=== PATIENT | female | born 1960 | race Caucasian/White ===

== ENCOUNTER 2019-09-03 19:10 | Inpatient (IN) | payer OTHER ==
[2019-09-03] MEDS ORDERED: ASPIRIN 81 MG CHEWABLE TABLET ONE (19:53)
[2019-09-03] MEDS ORDERED: NA CHLORIDE 0.9% 1,000 ML ONE (19:54)
[2019-09-03] MEDS ORDERED: NITROGLYCERIN 0.4 MG/TAB SL ONE (19:54)
--- NOTE | 2019-09-03 20:17 | RAD REPORT ---
EXAM DESCRIPTION: RAD - Chest Single View - 09/03/2019 8:09 pm CLINICAL HISTORY: CHEST PAIN Chest pain. COMPARISON: CHEST SINGLE VIEW dated 07/12/2014 FINDINGS: Portable technique limits examination quality. Mild interstitial pulmonary edema versus interstitial pneumonia suspected. The heart is upper limit n ormal in size. No displaced fractures.
[2019-09-03 20:25] LABS: Absolute Lymphocytes (CBC) 2.3 K/uL (0.7-4.9); Basophils % 0.4 % (0-1.3); Hematocrit 42.3 % (36.0-45.0); Lymphocytes % 16.5 % (15.3-44.8); MPV 8.4 fL (7.6-11.3); RBC Red Blood Cell Count 4.81 M/uL (3.86-4.86)
[2019-09-03 20:26] LABS: Protime INR 0.98
[2019-09-03 20:48] LABS: ALT/SGPT 37 U/L (12-78); AST/SGOT 21 U/L (15-37); Albumin 3.3 g/dL (3.4-5.0); Alkaline Phosphatase 128 U/L (45-117); BUN Blood Urea Nitrogen 13 mg/dL (7-18); Bicarbonate 23 mmol/L (21-32); Bilirubin Direct < 0.1 mg/dL (0-0.2); Bilirubin Total 0.4 mg/dL (0.2-1.0); Glucose Level 214 mg/dL (74-106); Magnesium 1.9 mg/dL (1.8-2.4); NT PRO-BNP 82 pg/mL (<125); Potassium 4.2 mmol/L (3.5-5.1); Protein, Total 6.9 g/dL (6.4-8.2); Sodium Level 138 mmol/L (136-145)
[2019-09-03 20:50] LABS: Troponin (Emerg Dept Use Only) 0.58 ng/mL (0.0-0.045)
--- NOTE | 2019-09-03 22:43 | ER ---
Nurse's Notes [facility] Name: Viridiana Mario Age: 59 yrs Sex: Female : 1960 Arrival Date: 09/03/2019 Time: 19:11 Bed 20 Private MD: Diagnosis: Non-ST elevation (NSTEMI) myocardial infarction Presentation: 09/02 19:17 Chief complaint: Patient states: Chest pains that began 1 hour ago. Coronavirus screen: ss Proceed with normal triage. Patient denies a cough. Patient denies shortness of breath or difficulty breathing. Patient denies measured and/or subjective temperature greater than 100.4F prior to today's visit. Patient denies travel on a cruise ship or to a country the [facility] currently lists as an affected area. Patient denies contact with known and/or suspected case of COVID-19. Ebola Screen: Patient denies exposure to infectious person. Patient denies travel to an Ebola-affected area in the 21 days before illness onset. Initial Sepsis Screen: Does the patient meet any 2 criteria? No. Patient's initial sepsis screen is negative. Does the patient have a suspected source of infection? No. Patient's initial sepsis screen is negative. Risk Assessment: Do you want to hurt yourself or someone else? Patient reports no desire to harm self or others. Onset of symptoms was September 03, 2019. 19:17 Method Of Arrival: Ambulatory 19:17 Acuity: GILBERTO 2 ss Historical: - Allergies: 19:20 PENICILLINS; ss 19:20 Wellbutrin; ss - PSHx: 19:20 circumflex cardiac stent; ss - Immunization history:: Adult Immunizations up to date. - Social history:: Smoking status: Patient reports the use of cigarette tobacco products, smokes one pack cigarettes per day. Screenin:05 Abuse screen: Denies threats or abuse. Nutritional screening: No deficits noted. ll1 Tuberculosis screening: No symptoms or risk factors identified. Fall Risk IV access (20 points). Total Archer Fall Scale indicates No Risk (0-24 pts). Assessment: 20:00 General: Appears in no apparent distress. Behavior is calm, cooperative, appropriate ll1 for age. Pain: Complains of pain in mid chest Pain radiates to both arms Pain currently is 2 out of 10 on a pain scale. Quality of pain is described as Pain began today. Neuro: No deficits noted. Cardiovascular: Reports chest pain, Heart tones S1 S2 Capillary refill < 3 seconds Clubbing of nail beds is absent JVD is absent Patient's skin is warm and dry. Respiratory: No deficits noted. Airway is patent Trachea midline Respiratory effort is even, unlabored, Respiratory pattern is regular, symmetrical, Breath sounds are clear bilaterally. Denies cough, shortness of breath. GI: Abdomen is flat, Bowel sounds present X 4 quads. Abd is soft and non tender X 4 quads. Reports one episode of N/V earlier today, none now. 21:00 Reassessment: Patient appears in no apparent distress at this time. No changes from ll1 previously documented assessment. Patient and/or family updated on plan of care and expected duration. Pain level reassessed. Patient is alert, oriented x 3, equal unlabored respirations, skin warm/dry/pink. 22:00 Reassessment: Patient appears in no apparent distress at this time. No changes from ll1 previously documented assessment. Patient and/or family updated on plan of care and expected duration. Pain level reassessed. Patient is alert, oriented x 3, equal unlabored respirations, skin warm/dry/pink. 23:00 Reassessment: Patient appears in no apparent distress at this time. No changes from ll1 previously documented assessment. Patient and/or family updated on plan of care and expected duration. Pain level reassessed. Patient is alert, oriented x 3, equal unlabored respirations, skin warm/dry/pink. 23:41 Reassessment: Patient appears in no apparent distress at this time. No changes from ll1 previously documented assessment. Patient and/or family updated on plan of care and expected duration. Pain level reassessed. Patient is alert, oriented x 3, equal unlabored respirations, skin warm/dry/pink. Gait steady from restroom. Vital Signs: 19:17 BP 166 / 87; Pulse 81; Resp 16; Temp 96.9(TE); Pulse Ox 100% on R/A; Weight 77.11 kg; ss Height 5 ft. 8 in. (172.72 cm); Pain 8/10; 19:22 Temp 98.4(O); ss 20:05 BP 150 / 91 LA; ll1 20:05 BP 150 / 85 RA; ll1 20:51 BP 139 / 78; Pulse 78; Resp 17; Pulse Ox 98% on R/A; Pain 1/10; ll1 21:15 BP 149 / 78; Pulse 75; Resp 16; Pulse Ox 99% ; Pain 0/10; ll1 23:13 Weight 79.9 kg (M); ll1 23:43 BP 135 / 76; Pulse 80; Resp 17; Temp 97.8; Pulse Ox 99% ; Pain 0/10; ll1 23:13 Body Mass Index 26.78 (79.90 kg, 172.72 cm) ll1 ED Course: 19:11 Patient arrived in ED. cl3 19:19 Triage completed. ss 19:20 Arm band placed on right wrist. ss 19:32 Chuy Oliver PA is PHCP. cp 19:32 Aarno Swartz MD is Attending Physician. cp 19:42 Hermes Aguero RN is Primary Nurse. ll1 20:05 Inserted saline lock: 22 gauge in right antecubital area, using aseptic technique. ll1 Blood collected. Patient maintains SpO2 saturation greater than 95% on room air. 20:06 Patient has correct armband on for positive identification. Placed in gown. Bed in low ll1 position. Call light in reach. Side rails up X2. crosstie inspector on. Pulse ox on. NIBP on. 22:42 Nikita Bueno is Hospitalizing Provider. cp 23:34 Angio Aorta For Dissection In Process Unspecified. EDMS 23:41 No provider procedures requiring assistance completed. Patient admitted, IV remains in ll1 place. Administered Medications: 19:55 Drug: Aspirin Chewable Tablet 243 mg Route: PO; ll1 20:50 Follow up: Response: No adverse reaction; Pain is decreased; RASS: Alert and Calm (0) ll1 19:56 Drug: Nitroglycerin 0.4 mg Route: Sublingual; ll1 20:50 Follow up: Response: No adverse reaction; Pain is decreased; RASS: Alert and Calm (0) ll1 20:03 Drug: NS 0.9% 500 ml Route: IV; Rate: bolus; Site: right antecubital; ll1 20:50 Follow up: Response: No adverse reaction; IV Status: Completed infusion; IV Intake: ll1 500ml 20:49 Drug: NS 0.9% 500 ml Route: IV; Rate: 100 ml/hr; Site: right antecubital; ll1 23:31 Drug: Lovenox 1 mg/kg Route: Sub-Q; Site: right lower abdomen; ll1 23:47 Follow up: Response: No adverse reaction; RASS: Alert and Calm (0) ll1 Intake: 20:50 IV: 500ml; Total: 500ml. ll1 Outcome: 22:42 Decision to Hospitalize by Provider. georgette 09/03 00:00 Admitted to ER Hold. Please see [facility] for further documentation. lp1 Condition: stable Instructed on the need for admit. 06:42 Patient left the ED. dm5 Signatures: Dispatcher [employer] EDMS Nicole Horton RN RN dm5 Tiffany Everett RN RN ss Shelia Plummer RN RN lp1 Chuy Oliver PA PA cp Lewis, Charde cl3 Hermes Aguero RN RN ll1
--- NOTE | 2019-09-03 22:43 | EDPHYS ---
Physician Documentation [facility] Name: Viridiana Mario Age: 59 yrs Sex: Female : 1960 Arrival Date: 09/03/2019 Time: 19:11 Bed 20 Private MD: ED Physician Aaron Swartz HPI: 09/02 19:40 This 59 yrs old Female presents to ER via Ambulatory with complaints of Chest cp Pain. 19:40 The patient or guardian reports chest pain that is located primarily in the substernal cp area. 19:40 Onset: 1 hour(s) ago. cp 19:40 Associated signs and symptoms: Pertinent positives: nausea, vomiting, back pain and cp bilateral arm pain, Pertinent negatives: abdominal pain, cough, diaphoresis, headache, lower extremity pain, lower extremity swelling, syncope. The chest pain is described as aching. Duration: The patient or guardian reports a single episode, that is still ongoing, but improving, pain level 8 at its worse, now a 2. Historical: - Allergies: 19:20 PENICILLINS; ss 19:20 Wellbutrin; ss - PSHx: 19:20 circumflex cardiac stent; ss - Immunization history:: Adult Immunizations up to date. - Social history:: Smoking status: Patient reports the use of cigarette tobacco products, smokes one pack cigarettes per day. ROS: 19:43 Eyes: Negative for injury, pain, redness, and discharge. cp 19:43 Constitutional: Negative for body aches, chills, fever, poor PO intake. 19:43 Cardiovascular: Positive for chest pain, of the substernal, Negative for edema, palpitations. 19:43 Abdomen/GI: Positive for nausea, vomiting, Negative for abdominal pain, diarrhea, constipation. 19:45 Respiratory: Negative for cough, shortness of breath, wheezing. cp 19:45 Back: Positive for pain at rest. 19:45 Skin: Negative for rash. 19:45 Neuro: Negative for altered mental status, headache, numbness, syncope, weakness. 19:45 All other systems are negative. Exam: 19:50 Constitutional: The patient appears in no acute distress, alert, awake, cp non-diaphoretic, non-toxic, well developed, well nourished. 19:50 Head/Face: Normocephalic, atraumatic. cp 19:50 Eyes: Periorbital structures: appear normal, Conjunctiva: normal, no exudate, no injection, Sclera: no appreciated abnormality, Lids and lashes: appear normal, bilaterally. 19:50 ENT: External ear(s): are unremarkable, Nose: is normal, Mouth: Lips: moist, Oral mucosa: moist, Posterior pharynx: Airway: no evidence of obstruction, patent. 19:50 Neck: ROM/movement: is normal, is supple, without pain, no range of motions limitations, no nuchal rigidity. 19:50 Chest/axilla: Inspection: normal, Palpation: is normal, no crepitus, no tenderness. 19:50 Cardiovascular: Rate: normal, Rhythm: regular, Pulses: Pulses are 2+ in right radial artery and left radial artery. Edema: is not appreciated, JVD: is not appreciated. 19:50 Respiratory: the patient does not display signs of respiratory distress, Respirations: normal, no use of accessory muscles, no retractions, labored breathing, is not present, Breath sounds: are clear throughout, no decreased breath sounds, no stridor, no wheezing. 19:50 Abdomen/GI: Inspection: abdomen appears normal, Bowel sounds: active, all quadrants, Palpation: abdomen is soft and non-tender, in all quadrants. 19:50 Back: pain, that is mild, of the mid back, ROM is normal, vertebral tenderness, is not appreciated. 19:50 Musculoskeletal/extremity: Exam is negative for decreased range of motion, deformity, injury. 19:50 Skin: no rash present. 19:50 Neuro: Orientation: to person, place \T\ time. Mentation: is normal, Motor: moves all fours, strength is normal, Sensation: is normal. 20:00 ECG was reviewed by the Attending Physician. cp Vital Signs: 19:17 BP 166 / 87; Pulse 81; Resp 16; Temp 96.9(TE); Pulse Ox 100% on R/A; Weight 77.11 kg; ss Height 5 ft. 8 in. (172.72 cm); Pain 8/10; 19:22 Temp 98.4(O); ss 20:05 BP 150 / 91 LA; ll1 20:05 BP 150 / 85 RA; ll1 20:51 BP 139 / 78; Pulse 78; Resp 17; Pulse Ox 98% on R/A; Pain 1/10; ll1 21:15 BP 149 / 78; Pulse 75; Resp 16; Pulse Ox 99% ; Pain 0/10; ll1 23:13 Weight 79.9 kg (M); ll1 23:43 BP 135 / 76; Pulse 80; Resp 17; Temp 97.8; Pulse Ox 99% ; Pain 0/10; ll1 23:13 Body Mass Index 26.78 (79.90 kg, 172.72 cm) ll1 MDM: 19:40 Patient medically screened. cp 20:30 Differential diagnosis: abnormal EKG, acute myocardial infarction, acute pericarditis, cp pulmonary embolus, stable angina, thoracic aortic disection, unstable angina. 22:40 Data reviewed: vital signs, nurses notes, lab test result(s), EKG, radiologic studies, cp CT scan, plain films. Test interpretation: by ED physician or midlevel provider: ECG. Physician consultation: Nikita Bueno was called at 22:40, was contacted at 22:40, regarding admission, to the telemetry unit. patient's condition, would like medications started, Lovenox 1mg/kg. 22:40 The patient was given aspirin in the Emergency Department. cp 22:40 Response to treatment: the patient's symptoms have markedly improved after treatment, cp chest pain resolved. 09/02 19:38 Order name: Basic Metabolic Panel cp 09/02 19:38 Order name: CBC with Diff cp 09/02 19:38 Order name: LFT's cp 09/02 19:38 Order name: Magnesium cp 09/02 19:38 Order name: NT PRO-BNP cp 09/02 19:38 Order name: PT-INR cp 09/02 19:38 Order name: Troponin (emerg Dept Use Only) cp 09/02 20:26 Order name: CBC with Automated Diff; Complete Time: 20:28 EDMS 09/02 20:28 Interpretation: Normal except: WBC 13.9; NEUT A 10.2. cp 09/02 20:30 Order name: Protime (+INR); Complete Time: 20:44 EDMS 09/02 20:50 Order name: Basic Metabolic Panel; Complete Time: 21:06 EDMS 09/02 21:06 Interpretation: Normal except: GLUC 214; GFR 78. cp 09/02 20:50 Order name: Liver (Hepatic) Function; Complete Time: 21:06 EDMS 09/02 21:07 Interpretation: Normal except: ALK 128; ALB 3.3; GLOB 3.6; A/G 0.9. 09/02 20:50 Order name: Troponin (Emerg Dept Use Only); Complete Time: 21:06 [facility] 09/02 21:07 Interpretation: Abnormal: TROPED 0.58. 09/02 20:50 Order name: NT PRO-BNP; Complete Time: 21:06 [facility] 09/02 20:50 Order name: Magnesium; Complete Time: 21:06 [facility] 09/02 19:20 Order name: EKG; Complete Time: 21:22 09/02 19:20 Order name: EKG - Nurse/Tech; Complete Time: 19:20 ss 09/02 19:38 Order name: XRAY Chest (1 view) 09/02 19:38 Order name: Cardiac monitoring; Complete Time: 19:42 09/02 19:38 Order name: IV Saline Lock; Complete Time: 19:42 09/02 19:38 Order name: Labs collected and sent; Complete Time: 19:42 09/02 19:38 Order name: O2 Per Protocol; Complete Time: 19:42 09/02 19:38 Order name: O2 Sat Monitoring; Complete Time: 19:42 09/02 20:19 Order name: RAD; Complete Time: 20:25 [facility] 09/02 20:25 Interpretation: Report reviewed. 09/02 20:45 Order name: CT Aorta for Dissection 09/02 23:34 Order name: Angio Aorta For Dissection [facility] 09/02 19:39 Order name: Blood Pressure Recheck: bilateral upper extremity; Complete Time: 20:05 EC:00 Rate is 73 beats/min. Rhythm is regular. AR interval is normal. QRS interval is normal. QT interval is normal. T waves are Inverted in lead aVR. Interpreted by me. Reviewed by me. Administered Medications: 19:55 Drug: Aspirin Chewable Tablet 243 mg Route: PO; ll1 20:50 Follow up: Response: No adverse reaction; Pain is decreased; RASS: Alert and Calm (0) ll1 19:56 Drug: Nitroglycerin 0.4 mg Route: Sublingual; ll1 20:50 Follow up: Response: No adverse reaction; Pain is decreased; RASS: Alert and Calm (0) ll1 20:03 Drug: NS 0.9% 500 ml Route: IV; Rate: bolus; Site: right antecubital; ll1 20:50 Follow up: Response: No adverse reaction; IV Status: Completed infusion; IV Intake: ll1 500ml 20:49 Drug: NS 0.9% 500 ml Route: IV; Rate: 100 ml/hr; Site: right antecubital; ll1 23:31 Drug: Lovenox 1 mg/kg Route: Sub-Q; Site: right lower abdomen; ll1 23:47 Follow up: Response: No adverse reaction; RASS: Alert and Calm (0) ll1 Disposition: 09/03 06:48 Co-signature as Attending Physician, Aaron Swartz MD. 7 Disposition: 09/03/19 22:42 Hospitalization ordered by Nikita Bueno for Inpatient Admission. Preliminary diagnosis is Non-ST elevation (NSTEMI) myocardial infarction. - Bed requested for Telemetry/MedSurg (Inpatient). - Status is Inpatient Admission. dm5 - Condition is Stable. - Problem is new. - Symptoms have improved. Signatures: Dispatcher [employer] EDMS Nicole Horton RN RN [facility] Tiffany Everett RN RN ss Page, Corey, PA PA cp Yuko Garcia RN RN Hermes Aguero RN RN [facility] Aaron Swartz MD MD 7 Corrections: (The following items were deleted from the chart) 09/02 20:28 20:28 Normal except: WBC 13.9. cp cp 23:20 22:42 Hospitalization Ordered by Nikita Bueno for Inpatient Admission. Preliminary cg diagnosis is Non-ST elevation (NSTEMI) myocardial infarction. Bed requested for Telemetry/MedSurg (Inpatient). Status is Inpatient Admission. Condition is Stable. Problem is new. Symptoms have improved. cp 09/03 05:24 09/02 23:20 09/03/2019 22:42 Hospitalization Ordered by Nikita Bueno for Inpatient cg Admission. Preliminary diagnosis is Non-ST elevation (NSTEMI) myocardial infarction. Bed requested for [facility] ER HOLD. Status is Inpatient Admission. Condition is Stable. Problem is new. Symptoms have improved. cg 09/03 06:42 05:24 09/03/2019 22:42 Hospitalization Ordered by Nikita Bueno for Inpatient dm5 Admission. Preliminary diagnosis is Non-ST elevation (NSTEMI) myocardial infarction. Bed requested for Telemetry/MedSurg (Inpatient). Status is Inpatient Admission. Condition is Stable. Problem is new. Symptoms have improved. cg
[2019-09-03] MEDS ORDERED: ENOXAPARIN 80 MG/0.8 ML SQ ONE (23:25)
--- NOTE | 2019-09-04 00:13 | P.HP ---
Certification for Inpatient Patient admitted to: Observation With expected LOS: <2 Midnights Practitioner: I am a practitioner with admitting privileges, knowledge of patient current condition, hospital course, and medical plan of care. Services: Services provided to patient in accordance with Admission requirements found in Title 42 Section 412.3 of the Code of Federal Regulations Patient History Date of Service: 09/04/19 Reason for admission: Chest pain History of Present Illness: 59-year-old woman with a history of coronary artery disease status post stent about 5 years ago present to the ED with a complaint of a left arm pain which progressed to back pain and chest pain, maximum intensity 8/10, no relieving or aggravating factors, no associated diaphoresis. Patient EKG in the ED demonstrated normal sinus rhythm, no significant ischemic changes. Chest x-ray unremarkable. Initial troponin is elevated to 0.58. Given patient's history of coronary artery disease with stent, she is admitted for further management of NSTEMI. Allergies Penicillins Allergy (Intermediate, Verified 07/12/14 05:33) Hives/Rash bupropion HCl [From Wellbutrin] Adverse Reaction (Intermediate, Verified 07/12/14 05:33) Shortness of breath welbutrin Allergy (Uncoded 07/12/14 05:33) Unknown Home Medications: Aspirin [Aspirin EC] 81 mg PO DAILY 07/12/14 Atorvastatin Calcium [Lipitor] 80 mg PO DAILY 07/12/14 Colesevelam [Welchol*] 625 mg PO TID 07/12/14 Insulin Aspart [Novolog] 100 unit SQ PRN PRN 07/12/14 Insulin Glargine Human [Lantus] 30 unit SQ DAILY 07/12/14 Losartan Potassium [Cozaar*] 50 mg PO DAILY 07/12/14 Prasugrel Hydrochloride [Effient] 10 mg PO DAILY 07/12/14 Tiotropium [Spiriva Handihaler*] 18 mcg IH DAILY #1 cap.w.dev 07/12/14 levoFLOXacin [Levaquin*] 500 mg PO DAILY #7 tab 07/12/14 - Past Medical/Surgical History Diabetic: Yes -: IDDM -: HTN -: hyperlipidemia -: heart disease -: stent 2011 - Family History Father -: Heart disease, Diabetes - Social History Alcohol use: No CD- Drugs: No Caffeine use: Yes Review of Systems Other: Except as documented, all other systems reviewed and negative. Physical Examination - Studies Laboratory Data (last 24 hrs) 09/03/19 20:00: PT 11.6, INR 0.98 09/03/19 20:00: WBC 13.9 H, Hgb 13.9, Hct 42.3, Plt Count 350 09/03/19 20:00: Sodium 138, Potassium 4.2, BUN 13, Creatinine 0.76, Glucose 214 H, Magnesium 1.9, Total Bilirubin 0.4, AST 21, ALT 37, Alkaline Phosphatase 128 H 09/03/19 19:38: PT Cancelled, INR Cancelled 09/03/19 19:38: WBC Cancelled, Hgb Cancelled, Hct Cancelled, Plt Count Cancelled 09/03/19 19:38: Sodium Cancelled, Potassium Cancelled, BUN Cancelled, Creatinine Cancelled, Glucose Cancelled, Magnesium Cancelled, Total Bilirubin Cancelled, AST Cancelled, ALT Cancelled, Alkaline Phosphatase Cancelled Assessment and Plan - Problems (Diagnosis) (1) NSTEMI (non-ST elevated myocardial infarction) Current Visit: Yes Status: Acute (2) Diabetes mellitus Onset Date: 07/12/14 Current Visit: No Status: Acute (3) Tobacco abuse Onset Date: 07/12/14 Current Visit: No Status: Acute - Plan Admit to the medical floor. Patient given a shot of full-dose Lovenox. Start Aspirin, plavix. Metoprolol b.i.d. NTG p.r.n. Cardiology consult Continue to trend troponin. Check lipid profile Blood glucose management with Lantus insulin and insulin sliding scale. - Advance Directives Does patient have a Living Will: No Does patient have a Durable POA for Healthcare: No
[2019-09-04] MEDS ORDERED: MORPHINE 4 MG/ML SYR IV PRN (04:24)
[2019-09-04] MEDS ORDERED: NITROGLYCERIN 0.4 MG/TAB SL PRN (04:24)
[2019-09-04 05:24] VITALS: BMI 26.6
[2019-09-04 07:05] LABS: Troponin I 3.82 ng/mL (0.0-0.045)
[2019-09-04] MEDS: INSULIN -REGULAR HUMAN 50 UNIT/0.5 ML ML SQ SCH ×4 (07:30→21:00)
[2019-09-04] MEDS: ASPIRIN EC 81 MG TAB PO SCH ×2 (09:00→15:10)
[2019-09-04] MEDS: CLOPIDOGREL 75 MG TABLET PO SCH ×2 (09:00→15:11)
[2019-09-04] MEDS: METOPROLOL TAR 50 MG TAB PO SCH ×3 (09:00→23:03)
--- NOTE | 2019-09-04 09:58 | P.PN ---
Date of Service: 09/04/19 Patient currently has no chest pain. She is currently asymptomatic. Troponin trended up to 3.8. Cardiology-Dr. Matos informed. Patient is planned for cardiac catheterization this afternoon. Keep NPO. NTG p.r.n..
[2019-09-04] MEDS ORDERED: ATROPINE SULF 1 MG/10 ML SYR IV ONE (15:10)
[2019-09-04] MEDS ORDERED: HEPARIN 5000 UNIT/ML 1 ML VIAL ONE (15:10)
[2019-09-04] MEDS ORDERED: MIDAZOLAM HCL 2 MG/2 ML INJ ONE (15:11)
[2019-09-04] MEDS ORDERED: HEPA 1000U/500MLS 2,000 UNIT/1,000 ML BAG IV ONE (15:11)
[2019-09-04] MEDS ORDERED: FENTANYL CITR 100 MCG/2 ML ONE (15:12)
[2019-09-04] MEDS ORDERED: NITROGLYCERIN 100 MCG/ML SYR (for cath lab use only) IV ONE (15:12)
[2019-09-04] MEDS ORDERED: NICARDIPINE HCL 25 MG/10 ML IV ONE (15:12)
[2019-09-04] MEDS ORDERED: LIDOCAINE 1% 20 ML MDV ONE (15:17)
[2019-09-04] MEDS ORDERED: NA CHLORIDE 0.9% 500 ML ONE (15:56)
[2019-09-04] MEDS ORDERED: TICAGRELOR 90 MG TABLET PO ONE (16:38)
--- NOTE | 2019-09-04 18:29 | RAD REPORT ---
EXAM DESCRIPTION: CT Angio Aorta For Dissection CLINICAL HISTORY: 59 years Female chest pain TECHNIQUE: Contiguous axial images obtained through the chest were obtained from the thoracic inlet to the level of the upper abdomen during the arterial phase of intravenous contrast administration. C oronal and sagittal reformatted images provided. This CT exam was performed according to our departmental dose-optimization program, which includes on e or more of the following dose reduction techniques: automated exposure control, adjustment of the m A and/or kV according to patient size, and/or use of iterative reconstruction technique. COMPARISON: No prior exams provided for comparison. FINDINGS: Top normal cardiac size without pericardial effusion. Atherosclerosis without thoracic aor tic aneurysm or dissection. Soft and calcific plaque throughout the abdominal aorta without aneurysm or dissection. The major branches of the aorta are patent. However, there is focal soft plaque at the origin of the left common iliac artery resulting in approx imately 60% stenosis. The iliac arteries are otherwise patent. No mediastinal or retroperitoneal hemo rrhage. There is no pulmonary embolus. The heart is normal in size without pericardial effusion. Mild biapical emphysema. Minimal atelectasis at the lung bases. The lungs are otherwise clear. Scatte red nonocclusive secretions in the trachea. No lymphadenopathy in the chest. Calcified bilateral breast nodules, left greater than right likely reflecting fibrocystic disease. Top normal hepatic size without focal lesion. The biliary tree, gallbladder, pancreas, spleen, right adrenal gland, bilateral kidneys, uterus, ovar ies, and urinary bladder are normal. There are two left adrenal nodules, measuring 2.4 and 2.1 cm. This cannot be characterized as benign on this contrast study. There is no bowel inflammation, obstruction, free intraperitoneal air, or ascites. The appendix is no rmal. Mild chronic degenerative changes in the spine. IMPRESSION: Atherosclerosis without aortic aneurysm or dissection. The major branches of the aorta are patent. Approximately 60% focal stenosis at the origin of the left common iliac artery. No pulmonary embolus. Mild biapical emphysema. Two indeterminate left adrenal nodules. If prior exams not available for comparison, consider follow- up with CT washout study or MRI. Electronically signed by: Ashley Peralta MD 09/03/2019 10:01 PM CDT Due to temporary technical issues with the PACS/Fluency reporting system, reports are being signed by the in house radiologist without review as a courtesy to ensure prompt reporting. The interpreting r adiologist is fully responsible for the content of the report.
[2019-09-05] MEDS ORDERED: ZOLPIDEM TARTRATE 5 MG TABLET PO PRN (01:00)
[2019-09-05 01:49] VITALS: O2SAT 95
[2019-09-05 06:57] LABS: Absolute Lymphocytes (CBC) 2.5 K/uL (0.7-4.9); Basophils % 0.7 % (0-1.3); Hematocrit 43.8 % (36.0-45.0); Lymphocytes % 21.1 % (15.3-44.8); MPV 8.4 fL (7.6-11.3); RBC Red Blood Cell Count 4.98 M/uL (3.86-4.86)
[2019-09-05 07:08] LABS: BUN Blood Urea Nitrogen 9 mg/dL (7-18); Bicarbonate 27 mmol/L (21-32); Glucose Level 124 mg/dL (74-106); Potassium 4.3 mmol/L (3.5-5.1); Sodium Level 140 mmol/L (136-145)
[2019-09-05] MEDS ORDERED: TICAGRELOR 90 MG TABLET PO SCH (09:00)
[2019-09-05] MEDS: ASPIRIN EC 81 MG TAB PO SCH (09:36)
[2019-09-05] MEDS: METOPROLOL TAR 50 MG TAB PO SCH (09:36)
[2019-09-05] MEDS: INSULIN -REGULAR HUMAN 50 UNIT/0.5 ML ML SQ SCH ×2 (09:43→11:30)
--- NOTE | 2019-09-05 11:03 | P.DS ---
Admission Date: 09/04/19 Discharge Date: 09/05/19 Disposition: ROUTINE DISCHARGE Discharge Condition: GOOD Reason for Admission: Chest pain Consultations: Cardiology-Dr. Matos Procedures: Heart catheterization: Significant CAD noted. Stent placed. Medical problem list: Chest pain secondary to NSTEMI status post heart catheterization requiring stent placement Hypertension Diabetes mellitus type 2 insulin dependent Hyperlipidemia Brief History of Present Illness: 59-year-old female with history of CAD with prior stent. Patient reported chest pain. Elevated troponin noted. NSTEMI identified. Patient admitted for further evaluation and treatment. Hospital Course: Patient presented with chest pain secondary to NSTEMI. Patient seen evaluated by Cardiology. Heart catheterization performed. Patient had severe disease requiring stent placement. The patient tolerated procedure well. Case reviewed in detail with cardiology. Cardiology recommends at discharge to continue with aspirin 81 mg daily, Brilinta 90 mg 1 pill twice daily, Lipitor 80 mg daily, metoprolol 25 mg 1 pill twice daily, and losartan 25 mg daily. Recommend follow up with cardiology in 1-2 weeks to follow up this hospitalization. Patient with hypertension. Patient previously on losartan 100 mg daily. Patient was started on metoprolol due to her CAD. Blood pressure stable. At discharge she will continue with metoprolol 25 mg 1 pill twice daily and losartan 25 mg daily. May need to hold losartan if blood pressure systolic less than 120. Recommend to monitor her blood pressure daily. Further adjustment can be done by her PCP or cardiology. Patient with diabetes mellitus type 2 insulin dependent. At discharge she will continue with her regimen of Lantus 22 units subcu daily. Further adjustment can be done by her PCP. Patient with hyperlipidemia. At discharge she will continue with 80 mg daily. Recommend to recheck lab-fasting lipid panel in 4 weeks to monitor progress. Vital Signs/Physical Exam: Temp Pulse Resp BP Pulse Ox 98.1 F 78 16 120/61 95 09/05/19 08:00 09/05/19 08:00 09/05/19 08:00 09/05/19 08:00 09/05/19 08:00 General: Alert, In no apparent distress, Oriented x3, Cooperative HEENT: Atraumatic Neck: Supple Respiratory: Clear to auscultation bilaterally, Normal air movement Cardiovascular: Normal pulses, Regular rate/rhythm Gastrointestinal: Normal bowel sounds, Soft and benign, Non-distended Neurological: Normal speech, Normal strength at 5/5 x4 extr, Normal tone, Normal affect Laboratory Data at Discharge: WBC 11.8 K/uL (4.3-10.9) H D 09/05/19 06:16 Hgb 14.7 g/dL (12.0-15.0) 09/05/19 06:16 Hct 43.8 % (36.0-45.0) 09/05/19 06:16 Plt Count 332 K/uL (152-406) 09/05/19 06:16 PT 11.6 SECONDS (9.5-12.5) 09/03/19 20:00 INR 0.98 09/03/19 20:00 Sodium 140 mmol/L (136-145) 09/05/19 06:16 Potassium 4.3 mmol/L (3.5-5.1) 09/05/19 06:16 BUN 9 mg/dL (7-18) 09/05/19 06:16 Creatinine 0.58 mg/dL (0.55-1.3) 09/05/19 06:16 Glucose 124 mg/dL (74-106) H 09/05/19 06:16 Magnesium 1.9 mg/dL (1.8-2.4) 09/03/19 20:00 Total Bilirubin 0.4 mg/dL (0.2-1.0) 09/03/19 20:00 AST 21 U/L (15-37) 09/03/19 20:00 ALT 37 U/L (12-78) 09/03/19 20:00 Alkaline Phosphatase 128 U/L (45-117) H 09/03/19 20:00 Troponin I 3.60 ng/mL (0.0-0.045) H* 09/04/19 08:33 Triglycerides 86 mg/dL (<150) 09/04/19 06:00 Cholesterol 140 mg/dL (<200) 09/04/19 06:00 HDL Cholesterol 40 mg/dL (40-60) 09/04/19 06:00 Cholesterol/HDL Ratio 3.50 09/04/19 06:00 Home Medications: Atorvastatin Calcium [Lipitor] 80 mg PO DAILY 07/12/14 Insulin Glargine Human [Lantus*] 22 unit SQ DAILY 07/12/14 Loratadine [Claritin*] 10 mg PO DAILY 09/04/19 Aspirin [Aspirin EC 81 MG] 81 mg PO DAILY #90 tablet. 09/05/19 Losartan Potassium 25 mg PO DAILY #30 tablet 09/05/19 Metoprolol Tartrate 25 mg PO BID #60 tablet 09/05/19 Ticagrelor [Brilinta*] 90 mg PO BID #60 tablet 09/05/19 New Medications: Aspirin [Aspirin EC 81 MG] 81 mg PO DAILY #90 tablet. Ticagrelor [Brilinta*] 90 mg PO BID #60 tablet Losartan Potassium 25 mg PO DAILY #30 tablet Metoprolol Tartrate 25 mg PO BID #60 tablet Patient Discharge Instructions: 1. Recommend follow up with PCP in 1 week to follow up this hospitalization. 2. Patient presented with chest pain secondary to NSTEMI. Patient seen evaluated by Cardiology. Heart catheterization performed. Patient had severe disease requiring stent placement. The patient tolerated procedure well. Case reviewed in detail with cardiology. Cardiology recommends at discharge to continue with aspirin 81 mg daily, Brilinta 90 mg 1 pill twice daily, Lipitor 80 mg daily, metoprolol 25 mg 1 pill twice daily, and losartan 25 mg daily. Recommend follow up with cardiology in 1-2 weeks to follow up this hospitalization. 3. Patient with hypertension. Patient previously on losartan 100 mg daily. Patient was started on metoprolol due to her CAD. Blood pressure stable. At discharge she will continue with metoprolol 25 mg 1 pill twice daily and losartan 25 mg daily. May need to hold losartan if blood pressure systolic less than 120. Recommend to monitor her blood pressure daily. Further adjustment can be done by her PCP or cardiology. 4. Patient with diabetes mellitus type 2 insulin dependent. At discharge she will continue with her regimen of Lantus 22 units subcu daily. Further adjustment can be done by her PCP. 5. Patient with hyperlipidemia. At discharge she will continue with 80 mg daily. Recommend to recheck lab-fasting lipid panel in 4 weeks to monitor progress. Diet: ADA Activity: Ad giovanny Time spent managing pt's care (in minutes): 55
[2019-09-05 13:10] VITALS: BP 117/69; TEMP 98.2
--- NOTE | 2019-09-05 20:59 | PN ---
Date of Progress Note: 09/05/2019 Subjective: Seen by bedside. Clinically she is asymptomatic. Did very well post PCI of the large O M branch that was the culprit for her MD yesterday. Review of Systems: No chest pain, shortness of breath, orthopnea, cough. No nausea, vomiting, diarrhea. No abdominal p ain. No history of urinary urgency. No skin rash. All other systems reviewed and they were negativ e except for what is mentioned in the HPI. Physical Examination: Vital Signs: Temperature is 98.2, pulse 65, breathing at 12, blood pressure is 117/69, saturating 96 % on room air. General: Pleasant middle-aged female, in no apparent distress. Head and Neck: Pupils are equal, react to light. Intact eye movements. No JVD. No cervical lympha denopathy. Neck is supple. Thyroid is not enlarged. Lungs: Clear to auscultation bilaterally. No rhonchi, rales or crackles. No accessory muscle use. Heart: Regular rate and rhythm. No extra sounds. Abdomen: Soft, nontender. Bowel sounds positive. No organomegaly. No masses or hernia. No rigidi ty or rebound. Extremities: No edema, clubbing, cyanosis. Intact pulses. Skin: No rashes. Neurologic: Alert, awake, oriented x3. No acute focal deficits appreciated. Investigations: Labs reviewed. Assessment And Plan: 1.Non-ST elevation myocardial infarction, culprit was the first OM branch, large vessel, status post PCI and 0% residual stenosis. The patient had resistance to Plavix in the past and there was signif icant in-stent restenosis doing this cath. At this time, recommend to continue Brilinta 90 mg q.12 h ours instead of Plavix and aspirin 81 mg. 2.Dyslipidemia. Lipitor 80 mg daily. 3.Diabetes, uncontrolled. She was encouraged to follow a strict low-carbohydrate diet and monitor s ugars very closely and follow up with PCP on that matter. 4.Smoking disorder. She was counseled on the need to quit immediately. She verbalized jessicain bon Cardiology signed off from this patient. I will have her follow up in 4 weeks in the office. I will obtain nuclear stress test prior to the visit with me, and if the stress test is positive, we wi ll plan for PCI of the distal moderate RCA stenosis. SR/MODL Voice ID: [id number] Report ID: [id number]
--- NOTE | 2019-09-05 21:11 | CON ---
Date of Consultation: 09/04/2019 Reason For Consultation: [id number] myocardial infarction. History Of Present Illness: 59-year-old female with history of diabetes, uncontrolled hypertension, smoker about a 1-1/2 pack per day, history of dyslipidemia, and coronary artery disease, status post carotid stents for acute OK about 3 years ago, presented with sudden crushing chest pain, retrosterna l, radiates to the neck and upper extremity with nausea. No vomiting with slight shortness of breath , lasted about an hour and a half. Presented to the emergency room. Cardiac enzymes were positive, but EKG did not show ST elevation. Evaluated her by bedside. She is completely symptoms free. Butch es having any nausea, vomiting, or diarrhea. No other complaints. Past Medical History: As outlined above in the HPI. Medications: Refer to reconciliation sheet for detailed list. Allergies: PENICILLIN, WELLBUTRIN. Social History: She smokes 1 pack per day. Does not drink or use any drugs. Family History: No premature coronary artery disease or cancer. Past Surgical History: Cardiac stent placement, 3 years ago. Review of Systems: All systems reviewed and they were negative except for what is mentioned in the HPI. Physical Examination: Vital Signs: Temperature is 98.4, pulse is 63, breathing 18, blood pressure 138/70, saturating 98% o n room air. General: Pleasant, middle-aged female, in no apparent distress. Head and Neck: Pupils are equal, react to light. Intact eye movements. No JVD. No cervical lympha denopathy. Neck is supple. Thyroid is not enlarged. Lungs: Clear to auscultation bilaterally. No rhonchi, rales, or crackles. No accessory muscle use. Heart: Regular rate and rhythm. No extra sounds. Abdomen: Soft, nontender. Bowel sounds positive. No organomegaly. No masses or hernia. Extremities: No edema, clubbing, cyanosis. Intact pulses. Skin: No rashes. Neurologic: Alert, awake, oriented x3. No acute focal deficits appreciated. Lymph Nodes: No cervical or axillary lymphadenopathy. Investigations: Sodium 138, BUN is 13, creatinine 0.7. Troponin 3.60, peaked at 3.82. Assessment And Plan: 1.Acute non-ST elevation myocardial infarction. The patient needs coronary angiogram. Discussed ri sks, benefits, and alternatives with her. She agreed to the procedure and signed informed consent an d will plan for definitive management of [id number] myocardial infarction for coronary angiogra m, plus or minus percutaneous coronary intervention if needed. Keep n.p.o. for the procedure today. Continue aspirin and high-dose statin. 2.Dyslipidemia, on Lipitor 80 mg daily. 3.Diabetes, poorly controlled. Patient was counseled to take her medications daily and to follow lo w-calorie diet. 4.Smoker. Counseling details to quit smoking. /KARENA Voice ID: [id number] Report ID: [id number]
--- NOTE | 2019-09-06 00:50 | OP ---
Date of Procedure: 09/04/2019 Surgeon: DIONISIO WESTBROOK Procedures Performed: 1.Selective coronary angiogram. 2.Left heart catheterization. 3.Percutaneous coronary intervention of severe proximal obtuse marginal branch 1 stenosis, more than 95%, which is the culprit lesion for the acute myocardial infarction, using 3.5 x 24 mm Synergy drug -eluting stent. Indication: Jic-PE-hivpigkuo myocardial infarction. Access: Right radial artery 6-[place], closed with TR band. Complication: None. Bleeding: Less than 5 mL. Total Sedation Time: 42 minutes. Description Of Procedure: After risks, benefits, and alternatives were explained to the patient, she agreed to the procedure and signed informed consent. Patient was brought into the cardiac catheteri zation laboratory, prepped and draped in usual sterile fashion and then we accessed right radial alex ry using pediatric micropuncture kit and placed a 6-[place] slender sheath. Then, we took the 5-Frenc h tiger catheter into the aortic root over a J-wire and engaged left main coronary artery and right c oronary artery and obtained standard views and was found to have severe OM3 disease as a culprit and decided to intervene. Intervention Details: We gave systemic heparin to assure ACT level above 250 throughout the procedur e and then, we took an EBU 3.5 guide into the aortic root over J-wire, engaged the left main coronary artery and then took a short run-through wire into the left circumflex and then into the OM1 branch crossing the stenosis. Patient had severe stenosis at the proximal edge of the stent and proximal to that in the [place] artery. The lesion was predilated using a 3.0 x 15 mm Compliant balloon and then we took a 3.5 x 24 mm Synergy drug-eluting stent across the stenosis and was deployed overlapping wi th the OM stent. That was originally there, bringing the stenosis from 95% to 0%. Patient had DONNA- 3 flow before and after procedure and the lesion length was about 20 mm. Findings: 1.Left main large with a distal 20% stenosis, but the large artery. 2.LAD, moderate size with luminal irregularities. 3.Left circumflex, large, but patent proximal stent and severe proximal OM1 stenosis, which is a cul prit lesion, status post-PCI as above. 4.RCA large dominant circulation with distal 40% to 50% stenosis. Impression: 1.Severe obtuse marginal branch 1 stenosis, status post percutaneous coronary intervention as above. This is the culprit lesion of the myocardial infarction. 2.Moderate distal right coronary artery stenosis. Recommendations: 1.Brilinta 180 was given as a load on the table. Continue 90 mg q.12 hours as the patient had resis tant to Plavix in the past. Continue aspirin 81 mg daily and Lipitor 80 mg daily. 2.Follow up in the office in 4 weeks. Patient is symptomatic. We will plan on further evaluation o f the RCA. We will have her do a nuclear stress test prior to her next visit. If this is positive o r if the patient is having symptoms, we will plan for PCI of the RCA, otherwise treat medically. Latonia negra was counseled in details on smoking habit and encouraged to quit immediately and monitor sugars very closely. /KARENA Voice ID: [id number] Report ID: [id number]
--- NOTE | 2019-09-07 08:46 | ECHO ---
HEIGHT: 5 ft 8 in WEIGHT: 175 lb 0 oz DATE OF STUDY: 09/04/[address]: juanpablo puente 2-DIMENSIONAL: YES M.MODE: YES DOPPLER: YES COLOR FLOW: YES TDS: NO PORTABLE: NO DEFINITY: NO BUBBLE STUDY: NO DIAGNOSIS: STEMI CARDIAC HISTORY: CATHERIZATION: YES SURGERY: NO PROSTHETIC VALVE: NO PACEMAKER: NO MEASUREMENTS (cm) DIASTOLIC (NORMALS) SYSTOLIC (NORMALS) IVSd 1.0 (0.6-1.2) LA Diam 2.8 (1.9-4.0) LVEF 45-50% LVIDd 4.1 (3.5-5.7) LVIDs 2.4 (2.0-3.5) %FS 41% LVPWd 1.1 (0.6-1.2) Ao Diam 2.6 (2.0-3.7) 2 DIMENSIONAL ASSESSMENT: RIGHT ATRIUM: NORMAL LEFT ATRIUM: NORMAL RIGHT VENTRICLE: NORMAL LEFT VENTRICLE: NORMAL SIZE TRICUSPID VALVE: MITRAL VALVE: PULMONIC VALVE: AORTIC VALVE: NORMAL PERICARDIAL EFFUSION: TRACE AORTIC ROOT: NORMAL LEFT VENTRICULAR WALL MOTION: DISTAL ANTEROSEPTAL/ APICAL DYSKINESIS. DOPPLER/COLOR FLOW: MILD TRICUSPID REGURGITATION, MILD MITRAL REGURGITATION, AND MILD PULMONIC INSUFFICIENCY. COMMENTS: MILDLY DEPRESSED LEFT VENTRICULAR EJECTION FRACTION 45-50%. DISTAL ANTEROSEPTAL AND APICAL DYSKINESIS. DIASTOLIC DYSFUNCTION. MILD TRICUSPID REGURGITATION, MILD MITRAL REGURGITATION, MILD PULMONIC INSUFFICIENCY. TECHNOLOGIST: SHAYLA PINA
== END 2019-09-05 16:30 | disposition home or self-care (01) | DRG 247 ==
LOC: ER 19:10 → ERHOLD 09-04 00:40 → 2ND 09-04 06:30
PROVIDERS: ADMIT Internal Medicine; ATTEND Internal Medicine
PROC: 027034Z Dilation of Coronary Artery, One Artery with Drug-eluting Intraluminal Device, Percutaneous Approach (ICD-10-PCS; principal; 2019-09-04)
PROC: 4A023N7 Measurement of Cardiac Sampling and Pressure, Left Heart, Percutaneous Approach (ICD-10-PCS; 2019-09-04)
PROC: B201YZZ Plain Radiography of Multiple Coronary Arteries using Other Contrast (ICD-10-PCS; 2019-09-04)
PROC: B205YZZ Plain Radiography of Left Heart using Other Contrast (ICD-10-PCS; 2019-09-04)
DX: I21.4 Non-ST elevation (NSTEMI) myocardial infarction (principal); I25.10 Atherosclerotic heart disease of native coronary artery without angina pectoris; I10 Essential (primary) hypertension; E78.5 Hyperlipidemia, unspecified; F17.200 Nicotine dependence, unspecified, uncomplicated; Z71.6 Tobacco abuse counseling; Z11.59 Encounter for screening for other viral diseases
CPT/HCPCS: 36415; 71045; 71275; 74175; 80048; 80061; 80076; 82947; 83735; 83880; 84484; 85025; 85347; 85610; 92928; 93306; 93458; 94760; 96360; 96372; 99285; C1725; C1893; J1644; J2250; J3010; J7030; J7040; U0002